=== PATIENT | male | born 1995 | race Caucasian/White ===

== ENCOUNTER 2016-09-17 19:04 | Emergency (ER) | payer BC ==
[2016-09-17 19:12] VITALS: BP 133/81; PULSE 91; RESP 18; TEMP 97.9; O2SAT 98
--- NOTE | 2016-09-17 20:07 | EDPHY ---
H & P Time Seen by Provider: 09/17/16 19:32 HPI/ROS: CHIEF COMPLAINT: Sore throat HISTORY OF PRESENT ILLNESS: Patient is a 21-year-old male who presents to the emergency department not feeling well. He states he has had a sore throat for the past 2-3 days. His throat pain is worsening. He describes it as diffuse. It is worse with swallowing. No shortness of breath. The patient has had an intermittent cough that is nonproductive. Mild nausea with no vomiting. No abdominal pain. No rash. No fevers or chills. REVIEW OF SYSTEMS: My complete review of systems is negative except as mentioned in the HPI. Past Medical/Surgical History: Denies Social history: The patient is visiting [place]. Smoking Status: Never smoked Physical Exam: Vitals noted. Afebrile GENERAL: Well-appearing, in no acute distress, alert. HEENT: Eyes normal to inspection, mild pharyngeal erythema. Uvula is midline. No asymmetry. No signs of dehydration. NECK: No thyromegaly, no lymphadenopathy, supple. RESPIRATORY: Clear to auscultation bilaterally, no rales, rhonchi or wheezing. CVS: Regular rate and rhythm, no rubs, murmurs, or gallops. ABDOMEN: Soft, nontender, nondistended, no organomegaly. BACK: Normal to inspection, no CVA tenderness. SKIN: Normal color, no rash, warm, dry. No pallor. EXTREMITIES: No pedal edema, no calf tenderness, no joint swelling. NEURO/PSYCH: Alert and oriented, normal mood and affect, normal motor sensory exam. Constitutional: Initial Vital Signs Temperature (C) 36.6 C 09/17/16 19:10 Heart Rate 91 09/17/16 19:10 Respiratory Rate 18 09/17/16 19:10 Blood Pressure 133/81 H 09/17/16 19:10 O2 Sat (%) 98 09/17/16 19:10 O2 Delivery Mode Room Air Allergies/Adverse Reactions: No Known Allergies Allergy (Unverified 09/17/16 19:12) Home Medications: Medication Instructions Recorded AZITHROMYCIN [Z-PACK] 250 mg PO DAILY #1 packet 09/17/16 Cetirizine HCl [Zyrtec] 10 mg PO 09/17/16 Hydrocodone/APAP 5/325 [[place] 1 - 2 tab PO Q4 #9 tab 09/17/16 5/325 (RX)] guaiFENesin [Mucinex] 1,200 mg PO 09/17/16 Medical Decision Making ED Course/Re-evaluation: In the emergency department I discussed possible etiologies with the patient. I answered all his questions. Patient was given warnings prior to leaving. He will return with worsening symptoms. Differential Diagnosis: My differential includes but is not limited to pharyngitis, strep pharyngitis, peritonsillar abscess, retropharyngeal abscess, tracheitis, epiglottitis, viral syndrome, pneumonia I do not feel the patient needs an x-ray at this time. His lung sounds were clear. Normal oxygen saturation. The patient will be given azithromycin to cover for possible strep pharyngitis. Departure - Departure Disposition: Home, Routine, Self-Care Clinical Impression: Acute pharyngitis Qualifiers: Pharyngitis/tonsillitis etiology: unspecified etiology Qualified Code(s): J02.9 - Acute pharyngitis, unspecified Condition: Good Instructions: Pharyngitis (ED) Additional Instructions: Return with increasing sore throat, increasing fever, shortness of breath or any other concerns. Take your entire course of antibiotics. Referrals: Kyleigh Domingo MD [Medical Doctor] - 5-7 days, if not improved Prescriptions: AZITHROMYCIN [Z-PACK] 250 mg PO DAILY #1 packet Hydrocodone/APAP 5/325 [[place] 5/325 (RX)] 1 - 2 tab PO Q4 #9 tab
== END 2016-09-17 20:05 | disposition home or self-care (01) ==
DX: J02.9 Acute pharyngitis, unspecified (principal)